=== PATIENT | female | born 1975 | race Native Hawaiian/Other Pacific Islander ===

== ENCOUNTER 2019-02-15 10:02 | Inpatient (IN) | payer OTHER ==
[2019-02-15] VITALS (13 sets, daily range): BP systolic 99–144; BP diastolic 59–91; TEMP 97.7–98.4; Ht 167.6 cm; Wt 177.9 kg
[~2019-02-15] VITALS: Ht 167.6 cm; Wt 177.9 kg
[~2019-02-15 10:02] MED LIST: CARTIA XT240 MG/24 PO; HYDR25TA60 PO; PACERONE200 MG PO; PHENTERMINE37.5 MG PO; WARFARIN5 MG PO
[2019-02-15 10:41] LABS: PLATELET COUNT 316 K/uL (152-353)
[2019-02-15 11:38] LABS: POTASSIUM 4.5 mmol/L (3.6-5.2); SODIUM 140 mmol/L (136-145)
[2019-02-16] VITALS (22 sets, daily range): BP systolic 91–1106; BP diastolic 33–77; TEMP 97.4–98.5
[2019-02-17] VITALS (20 sets, daily range): BP systolic 83–141; BP diastolic 38–73; TEMP 97.2–98
[2019-02-17 05:13] LABS: PLATELET COUNT 237 K/uL (152-353)
[2019-02-17 06:05] LABS: POTASSIUM 4.4 mmol/L (3.6-5.2)
[2019-02-18 04:02] VITALS: BP 111/59; TEMP 98.1
[2019-02-18 19:43] VITALS: BP 140/73; TEMP 98.6
[2019-02-19] VITALS: BP 137/79; TEMP 98
[2019-02-19 04:00] VITALS: BP 118/57; TEMP 98.3
[2019-02-19 08:20] VITALS: BP 126/76; TEMP 98.3
== END 2019-02-19 14:30 | disposition home or self-care (01) | DRG 309 ==
LOC: ED 10:02 → ICU 12:30 → MED/SURG 02-17 16:05
PROVIDERS: Internal Medicine; ADMIT Emergency Medicine
DX: I48.2 Chronic atrial fibrillation (principal); Z68.44 Body mass index [BMI] 60.0-69.9, adult; Z79.01 Long term (current) use of anticoagulants; E66.8 Other obesity; I10 Essential (primary) hypertension
CPT/HCPCS: 36415; 80053; 82550; 82553; 84484; 85027; 93005; 96361; 96365; 96366; 96375; 96376; 99285; J3490

== ENCOUNTER 2019-04-12 09:10 | Outpatient (CLI) | payer OTHER | END 2019-04-12 20:09 | disposition home or self-care (01) | LOC: RESP 09:10 | DX: I48.0 Paroxysmal atrial fibrillation (principal); R07.89 Other chest pain | CPT/HCPCS: 93225; 93306 ==

== ENCOUNTER 2019-06-22 17:01 | Emergency (ER) | payer OTHER ==
[~2019-06-22] VITALS: Ht 167.6 cm; Wt 158.8 kg
[2019-06-22 19:00] VITALS: BP 141/76; TEMP 98
[2019-06-22] MEDS ORDERED: ELIQUIS5 MG PO (19:10)
[2019-06-22] MEDS ORDERED: AMIODARONE HYD200 MG PO (19:10)
== END 2019-06-22 19:00 | disposition home or self-care (01) ==
LOC: ED 17:01
PROC: 0HQGXZZ Repair Left Hand Skin, External Approach (ICD-10-PCS; principal; 2019-06-22)
DX: S61.452A Open bite of left hand, initial encounter (principal); S61.032A Puncture wound without foreign body of left thumb without damage to nail, initial encounter; S60.512A Abrasion of left hand, initial encounter; W54.0XXA Bitten by dog, initial encounter; Y92.89 Other specified places as the place of occurrence of the external cause
CPT/HCPCS: 90471; 90715; 99283

== ENCOUNTER 2020-02-20 12:12 | Emergency (ER) | payer OTHER ==
[~2020-02-20] VITALS: Ht 167.6 cm; Wt 152.0 kg
[~2020-02-20 12:12] MED LIST changes: +AMIODARONE HYD200 MG PO; +ELIQUIS5 MG PO
[2020-02-20 12:15] VITALS: TEMP 98.5
[2020-02-20 13:04] LABS: PLATELET COUNT 194 K/uL (152-353)
[2020-02-20 13:15] LABS: POTASSIUM 4.2 mmol/L (3.6-5.2); SODIUM 137 mmol/L (136-145)
[2020-02-20 18:53] VITALS: BP 149/85
== END 2020-02-20 19:00 | disposition short-term general hospital (02) ==
LOC: ED 12:12
PROVIDERS: Family Medicine
DX: I48.20 Chronic atrial fibrillation, unspecified (principal)
CPT/HCPCS: 36415; 80053; 82550; 84484; 85027; 85379; 93005; 96365; 96375; 96376; 99285; J1160; J3490

== ENCOUNTER 2020-03-28 14:15 | Observation (INO) | payer OTHER ==
[~2020-03-28] VITALS: Ht 167.6 cm; Wt 185.1 kg
[2020-03-28 14:56] LABS: PLATELET COUNT 209 K/uL (152-353)
[2020-03-28 15:19] LABS: POTASSIUM 3.8 mmol/L (3.6-5.2)
[2020-03-28 15:25] VITALS: BP 130/52; TEMP 98.2; Ht 167.6 cm; Wt 185.1 kg
[2020-03-28] MEDS ORDERED: DILTIAZEM HCL180 M2 PO (17:35)
[2020-03-28] MEDS ORDERED: ASA LOW DOSE81 MG PO (17:35)
[2020-03-28] MEDS ORDERED: IRON45 MG PO (17:36)
[2020-03-28 20:00] VITALS: BP 148/71; TEMP 98.4
[2020-03-28 22:12] VITALS: BP 140/66; TEMP 98.6
[2020-03-28 22:27] VITALS: BP 135/73; TEMP 98.4
[2020-03-28 22:42] VITALS: BP 140/71; TEMP 98.7
[2020-03-28 23:42] VITALS: BP 132/71; TEMP 98.6
[2020-03-29] VITALS (20 sets, daily range): BP systolic 118–145; BP diastolic 52–78; TEMP 97.5–99
[2020-03-29 16:57] LABS: PLATELET COUNT 168 K/uL (152-353)
== END 2020-03-29 17:40 | disposition home or self-care (01) ==
LOC: MED/SURG 14:15
PROVIDERS: ADMIT Internal Medicine Endocrinology, Diabetes & Metabolism
PROC: 30233N1 Transfusion of Nonautologous Red Blood Cells into Peripheral Vein, Percutaneous Approach (ICD-10-PCS; principal; 2020-03-28)
PROC: 30233N1 Transfusion of Nonautologous Red Blood Cells into Peripheral Vein, Percutaneous Approach (ICD-10-PCS; 2020-03-29)
DX: D64.89 Other specified anemias (principal); N93.8 Other specified abnormal uterine and vaginal bleeding; Z79.01 Long term (current) use of anticoagulants; E78.49 Other hyperlipidemia; E66.01 Morbid (severe) obesity due to excess calories; Z68.44 Body mass index [BMI] 60.0-69.9, adult; K21.9 Gastro-esophageal reflux disease without esophagitis; I48.20 Chronic atrial fibrillation, unspecified
CPT/HCPCS: 36415; 36430; 80048; 83036; 85027; 86850; 86900; 86901; 86922; 99220; G0378; G0379; P9016

== ENCOUNTER 2021-12-31 09:31 | Emergency (ER) | payer OTHER ==
[~2021-12-31] VITALS: Ht 167.6 cm; Wt 199.6 kg
[~2021-12-31 09:31] MED LIST changes: +ASA LOW DOSE81 MG PO; +DILTIAZEM HCL180 M2 PO; +IRON45 MG PO
[2021-12-31 10:20] LABS: PLATELET COUNT 198 K/uL (152-353)
[2021-12-31 10:35] LABS: POTASSIUM 4.2 mmol/L (3.6-5.2)
[2021-12-31 16:00] VITALS: BP 154/90; TEMP 98
== END 2021-12-31 16:01 | disposition home or self-care (01) ==
LOC: ED 09:31
PROVIDERS: Emergency Medicine
DX: J18.9 Pneumonia, unspecified organism (principal)
CPT/HCPCS: 36415; 36600; 80053; 82805; 83880; 84443; 84484; 85027; 85379; 85610; 85730; 87040; 87502; 93005; 99284; Q9963